=== PATIENT | female | born 1995 | race Caucasian/White ===

== ENCOUNTER → 2021-09-04 | Outpatient (CLI) | payer SELFPAY | END | disposition home or self-care (01) | PROVIDERS: Referring Provider Physician Assistant Surgical; Visit Provider Physician Assistant Surgical | DX: N39.0 Urinary tract infection, site not specified (principal) | CPT/HCPCS: 87086; 87088 ==

== ENCOUNTER 2022-12-24 01:27 | Emergency (ER) | payer OTHER, SELFPAY ==
[2022-12-24 01:27] VITALS: BP 136/72; PULSE 89; RESP 16; TEMP 36.5; TEMP 36.8; O2SAT 99; BMI 32.8
--- NOTE | 2022-12-24 02:10 | EDS_ITS ---
HPI History of Present Illness Chief Complaint: Dental Detail of Chief Complaint: Left lower molar dental pain Informant: patient Onset/Context/Timing Onset: Today and Hours Context: Gradual Onset Timing: Continuous Current Severity: Moderate Maximum Severity: Moderate Relieved by: NSAIDs Associated Symptoms Assocated Symptom - Dental: Negative for fever, jaw swelling, face swelling, cold sensitivity or hot sensitivity Narrative Narrative: [id number] female no significant past medical history. Has a fractured left lower molar with also a cavity. Started having dental pain several hours ago. No fever or chills. No facial swelling. Has been taking ibuprofen and Tylenol without significant relief. Prior similar symptoms: Yes Recent Illness/Hospitalization: No PFSH PFSH Medical History no medical history no medical history Home Medications penicillin V potassium 500 mg tablet 500 mg PO 4X/DAY #40 tabs 12/24/22 [Rx Last Taken Unknown] Allergy/AdvReac Type Severity Reaction Status Date / Time No Known Allergies Allergy Unverified 07/03/22 17:18 Surgical History no surgical history no surgical history Social History Smoking Status: Never smoker ROS ROS ED ROS Narrative Denies recent illness. Review of Systems ROS Unobtainable: Denies due to encephalopathy Constitutional Constitutional ED: Denies chills or fever(s) Eyes Eyes: Denies blurry vision ENT ENT ED: Denies ear pain Cardiovascular Cardiovascular: Denies chest pain Respiratory/Chest Respiratory/Chest: Denies cough or dyspnea Gastrointestinal Gastrointestinal: Denies abdominal pain Genitourinary Genitourinary ED: Denies dysuria or hematuria Musculoskeletal Musculoskeletal: Denies arthralgias Integumentary Denies abscess Neurologic Neurologic: Denies headache(s) Psychiatric Psychiatric: Denies anxiety Endocrine Endocrinology: Denies cold intolerance Hematologic/Lymphatic Hematologic/Lymphatic: Denies easy bleeding Allergic/Immunologic Allergic/Immunologic ED: Denies mouth swelling or tongue swelling EXAM Physical Exam Narrative Exam Narrative: 19-year-old female no acute distress. Vital signs stable afebrile. HEENT exam shows a left lower last molar has a large hornet system with a cavity in dental fracture. There is mild gingival swelling. No abscess. No trismus. Able to open and close her mouth any difficulty. Posterior pharynx normal. No trouble swallowing or breathing. Underneath her tongue is normal. There is no facial swelling. Neck nontender no lymphadenopathy. Lungs are clear. Heart regular rhythm. Otherwise exam unremarkable. Const Vital Signs: 12/24/22 01:27 12/24/22 01:27 Temperature 97.7 F L 98.2 F Temperature Source Temporal Temporal Pulse Rate 89 Respiratory Rate 16 Blood Pressure 136/72 H Blood Pressure Mean 93 Pulse Ox 99 99 Oxygen Delivery Method Room Air Room Air Positive well nourished and well developed; Negative for obese, cachectic, contractures or unkempt General Appearance ED: well developed and NAD; Negative for unkempt, cachectic or contractures Nutritional Appearance: Negative for cachectic or obese HEENT Denies other HEENT Narrative: Left lower last molar with a large hole in it. Mild gingival swelling. No abscess. No trismus. Negative for trauma, tenderness or other Face and Sinus: Negative for sinuses nontender Teeth and Gingiva: abnormal tooth and associated gingiva Throat: posterior oropharynx normal Eyes PERRL and EOMs intact bilaterally General Eye ED: Negative for pale conjunctiva or scleral icterus Neck no lymphadenopathy, supple and no JVD General: normal visual inspection; Negative for anterior neck swelling, tenderness or submandibular swelling Lymph Lymphatic: no lymphadenopathy noted; Negative for lymphadenopathy Chest Wall inspection of chest normal and palpation of chest normal Chest: Negative for other Resp normal respiratory effort, no retractions and clear to auscultation bilaterally Effort and Inspection: Negative for other Cardio regular rate, regular rhythm, S1 normal heart sound, S2 normal heart sound and no murmurs Jugular Venous Distention: Negative for other Rate: Negative for bradycardia Rhythm: Negative for abnormal rhythm GI normal to inspection, nondistended, normoactive bowel sounds, non-tender, non- distended and no masses Inspection: Negative for other Palpation: soft Bladder / Kidney Exam: No other Back/Spine no CVA tenderness General Back: Negative for CVA tenderness Cervical Spine: Negative for other Extremity normal to inspection and no joint enlargement General Extremety ED: Negative for edema General Extremity: Negative for edema Neuro oriented x3, moves all extremities and no focal motor deficits Sensorium / Orientation: alert, oriented to person, oriented to place and oriented to time Motor Exam: strength 5/5 throughout Psych mental status grossly normal Appearance: Negative for unkempt Attitude: No agitated Mood & Affect: Negative for depressed, anxious or tearful Skin no rashes or lesions noted and no wounds General Skin Exam: Negative for other MDM MDM MDM Narrative Medical decision making narrative: 27-year-old female no acute distress. Has a large hole in her left lower molar. I did a dental block using Marcaine. Patient is getting relief. She will be discharged home with Tylenol Motrin for pain. Follow-up with a dentist soon as possible. Manolo-Chantee K for the gingival inflammation around the tooth. History & Record Review Discussion w/independent historian: Patient Discharge Plan Triage Chief Complaint: Dental ED Provider: Miquel Ulloa Dx/Rx/DC Orders Clinical Impression: Pain, dental, Dental cavity Instructions: ED Dental Pain, ED Dental Cavity Prescriptions: New penicillin V potassium 500 mg tablet 500 mg PO 4X/DAY Qty: 40 0RF Activity Restrictions/Additional Instructions: Ice to your jaw. Alternate Motrin and Tylenol for pain. Follow-up with a dentist as soon as possible. Penicillin 1 pill 4 times a day till gone. Disposition Disposition: Home, Self Care
== END 2022-12-24 03:06 | disposition home or self-care (01) ==
LOC: ED 02:19
PROVIDERS: Emergency Provider Emergency Medicine; Visit Provider Emergency Medicine
DX: K08.89 Other specified disorders of teeth and supporting structures (principal); K02.9 Dental caries, unspecified
CPT/HCPCS: 99282

== ENCOUNTER 2023-04-28 20:54 | Emergency (ER) | payer OTHER, SELFPAY ==
[2023-04-28 20:55] VITALS: BP 117/93; PULSE 97; RESP 16; TEMP 35.9; O2SAT 97; BMI 32.8
--- NOTE | 2023-04-28 21:21 | CT_ITS ---
EXAM: CT ABDOMEN AND PELVIS WITHOUT INTRAVENOUS CONTRAST CLINICAL INDICATION: right flank pain TECHNIQUE: Helically acquired images were obtained of the abdomen and pelvis without intravenous contrast. This CT exam was performed using one or more of the following dose reduction techniques: automated exposure control, adjustment of the mA and/or kV according to patient size, and/or use of iterative reconstruction technique. COMPARISON: No relevant prior studies available. FINDINGS: LOWER THORAX: Unremarkable. Lung bases are clear. No cardiomegaly. No significant pericardial effusion. ABDOMEN: LIVER: Unremarkable. Homogeneous. GALLBLADDER AND BILE DUCTS: Unremarkable. No calcified gallstones. No gallbladder distention or wall edema. No intra- or extrahepatic biliary ductal dilation. PANCREAS: Unremarkable. No focal cystic mass. SPLEEN: Unremarkable. Normal size without focal cystic or solid mass. ADRENALS: Unremarkable. No nodules. KIDNEYS AND URETERS: Trace right hydronephrosis. Mild right hydroureter. 3 x 3 x 6 mm stone in the right distal ureter. Left kidney is unremarkable. Normal renal size and position. STOMACH AND BOWEL: Diverticulosis. No acute diverticulitis. No stomach or bowel distention. PELVIS: APPENDIX: No evidence of acute appendicitis. BLADDER: Unremarkable. REPRODUCTIVE: Unremarkable as visualized. No mass. ABDOMEN and PELVIS: INTRAPERITONEAL SPACE: Unremarkable. No ascites or other fluid collection. No free air. BONES/JOINTS: Unremarkable. No suspicious lytic or blastic abnormality. SOFT TISSUES: Unremarkable. No discrete abdominal or pelvic wall hernia. VASCULATURE: Unremarkable. Abdominal aorta is normal in caliber. LYMPH NODES: Unremarkable. No enlarged lymph nodes. CT/Abdomen/Pelvis without Cont IMPRESSION: Stone in the right distal ureter with mild proximal hydroureteronephrosis. Electronically Signed: Sabi Rosas MD at 23:08 EDT Reading Location ID and State: [id number] / Tel , Service support ,
--- NOTE | 2023-04-28 21:24 | EDS_ITS ---
HPI <MAX Salazar - Last Filed: 04/28/23 21:59> History of Present Illness Chief Complaint: Back Narrative Narrative: 28-year-old female states at 5 PM she adjusted herself in a chair and had sudden onset right flank pain and since then she has had the sensation that she has to urinate more frequently. She has no hematuria or burning. She has had a few episodes of nausea and vomiting since the pain started. No fever or chills. He has no history of similar symptoms or kidney stones. No abdominal surgical history. PFSH <AMX Salazar - Last Filed: 04/28/23 21:59> PFSH Medical History no medical history Home Medications ondansetron 4 mg disintegrating tablet 4 mg PO Q8H PRN nausea and vomiting 3 days #9 tabs 04/28/23 [Rx Last Taken Unknown] oxycodone 5 mg capsule 5 mg PO Q6H PRN pain 3 days #12 caps 04/28/23 [Rx Last Taken Unknown] tamsulosin 0.4 mg capsule (Flomax) 0.4 mg PO DAILY #5 caps 04/28/23 [Rx Last Taken Unknown] Allergy/AdvReac Type Severity Reaction Status Date / Time No Known Allergies Allergy Verified 04/28/23 20:55 Family History no significant family his Surgical History no surgical history Social History Smoking Status: Current every day smoker tobacco type: cigarettes ROS <MAX Salazar Last Filed: 04/28/23 21:59> ROS ED ROS Narrative Constitutional: Negative for fever, chills, malaise. CVS: Negative for chest pain, syncope. Respiratory: Negative for shortness of breath, cough. GI: Positive for nausea, vomiting. Negative for abdominal pain, diarrhea, constipation, melena, hematochezia. : Negative for dysuria, hematuria. EXAM <MAX Salazar Last Filed: 04/28/23 21:59> Physical Exam Narrative Exam Narrative: CONST: Patient sitting in no acute distress. EYES: Normal inspection. NECK: Normal inspection. RESP: No respiratory distress, CTAB. CVS: Regular rate and rhythm, no murmur, no gallop. ABD: Soft and nontender, no guarding or rebound, nondistended, no hepatosplenomegaly. Back: Normal inspection, no CVA tenderness. SKIN: Color normal, no rash, warm, dry, intact. EXTREMITIES: Normal appearance, no pedal edema. NEURO: Oriented x4. PSYCH: Normal affect. Const Vital Signs: 04/28/23 20:55 Temperature 96.7 F L Temperature Source Temporal Pulse Rate 97 Respiratory Rate 16 Blood Pressure 117/93 H Blood Pressure Mean 101 Pulse Ox 97 <Dr. Ajay Estrada DO - Last Filed: 04/28/23 23:33> Physical Exam Const Vital Signs: 04/28/23 20:55 Temperature 96.7 F L Temperature Source Temporal Pulse Rate 97 Respiratory Rate 16 Blood Pressure 117/93 H Blood Pressure Mean 101 Pulse Ox 97 MDM <MAX Salazar - Last Filed: 04/28/23 21:59> [facility] MDM Narrative Medical decision making narrative: Patient has right flank pain. He appears well and nontoxic with normal vital signs. Normal heart and lung sounds. No abdominal tenderness. There is no reproducible tenderness of her flank or back. Although this may be musculoskeletal as it started with readjusting herself in the chair, she also states the pain has been severe enough to cause vomiting and she feels the urge to urinate more frequently so labs and CT will be obtained to rule out kidney stone. Lab Data Attestation: I reviewed the patient's lab results. Labs: Laboratory Results - last 24 hr 04/28/23 04/28/23 04/28/23 21:35 21:35 21:40 WBC Cancelled Corrected WBC Cancelled RBC Cancelled Hgb Cancelled Hct Cancelled MCV Cancelled MCH Cancelled MCHC Cancelled RDW Std Deviation Cancelled RDW Coeff of Molly Cancelled Plt Count Cancelled MPV Cancelled Immature Gran % (Auto) Cancelled Neut % (Auto) Cancelled Lymph % (Auto) Cancelled [place] % (Auto) Cancelled Eos % (Auto) Cancelled Baso % (Auto) Cancelled Absolute Neuts (auto) Cancelled Absolute Lymphs (auto) Cancelled Total Counted Cancelled Neutrophils % (Manual) Cancelled Band Neutrophils % Cancelled Lymphocytes % (Manual) Cancelled Monocytes % (Manual) Cancelled Eosinophils % (Manual) Cancelled Basophils % (Manual) Cancelled Metamyelocytes % Cancelled Myelocytes % Cancelled Promyelocytes % Cancelled Blast Cells % Cancelled Plasma Cell % (Manual) Cancelled Other Cells % Cancelled Nucleated RBC % Cancelled Nucleated RBCs/100 WBC Cancelled Differential Comment Cancelled Diff Path Review Cancelled Hypersegmented Neuts Cancelled Atypical Lymphocytes Cancelled Reactive Lymphocytes Cancelled Smudge Cells Cancelled Toxic Granulation Cancelled Toxic Vacuolation Cancelled Dohle Bodies Cancelled Tiffanie Rods Cancelled Platelet Estimate Cancelled Plt Morphology Comment Cancelled RBC Morphology Cancelled Cancelled Polychromasia Cancelled Hypochromasia Cancelled Poikilocytosis Cancelled Basophilic Stippling Cancelled Anisocytosis Cancelled Microcytosis Cancelled Macrocytosis Cancelled Spherocytes Cancelled Sickle Cells Cancelled Target Cells Cancelled Tear Drop Cells Cancelled Ovalocytes Cancelled Stomatocytes Cancelled [place] Bodies Cancelled [place] Cells Cancelled Bite Cells Cancelled Crenated Cell Cancelled Acanthocytes (Spur) Cancelled Rouleaux Cancelled Schistocytes Cancelled Sodium 138 Potassium 3.9 Chloride 106 Carbon Dioxide 25.0 Anion Gap 7 BUN 15 Creatinine 1.13 H Estim Creat Clear Calc 63.43 Est GFR (MDRD) Af Amer 73 Est GFR (MDRD) Non-Af 61 BUN/Creatinine Ratio 13.3 Glucose 113 H Calcium 9.3 Urine Color Yellow Urine Clarity Cloudy Urine pH 8.0 Ur Specific [place] 1.010 Urine Protein 30 H Urine Glucose (UA) Normal Urine Ketones 150 A* Urine Occult Blood 25 H Urine Nitrite Negative Urine Bilirubin Negative Urine Urobilinogen 1 H Ur Leukocyte Esterase 25 H Urine RBC 0-5 SEEN Urine WBC 0-5 SEEN Ur Squamous Epith Cells 0-5 SEEN Amorphous Sediment 1+ Urine Bacteria 2+ Urine Mucus RARE Urine Test Negative Radiography Diagnostic Testing: Clinical Impression(s) from Imaging Studies Abdomen/Pelvis CT 04/28/23 21:21 IMPRESSION: Stone in the right distal ureter with mild proximal hydroureteronephrosis. Electronically Signed: Sabi Rosas MD at 23:08 EDT Reading Location ID and State: [id number] / Tel , Service support , <Dr. Ajay Estrada, DO - Last Filed: 04/28/23 23:33> [facility] Lab Data Labs: Laboratory Results - last 24 hr 04/28/23 04/28/23 04/28/23 21:35 21:35 21:40 WBC Cancelled Corrected WBC Cancelled RBC Cancelled Hgb Cancelled Hct Cancelled MCV Cancelled MCH Cancelled MCHC Cancelled RDW Std Deviation Cancelled RDW Coeff of Molly Cancelled Plt Count Cancelled MPV Cancelled Immature Gran % (Auto) Cancelled Neut % (Auto) Cancelled Lymph % (Auto) Cancelled [place] % (Auto) Cancelled Eos % (Auto) Cancelled Baso % (Auto) Cancelled Absolute Neuts (auto) Cancelled Absolute Lymphs (auto) Cancelled Total Counted Cancelled Neutrophils % (Manual) Cancelled Band Neutrophils % Cancelled Lymphocytes % (Manual) Cancelled Monocytes % (Manual) Cancelled Eosinophils % (Manual) Cancelled Basophils % (Manual) Cancelled Metamyelocytes % Cancelled Myelocytes % Cancelled Promyelocytes % Cancelled Blast Cells % Cancelled Plasma Cell % (Manual) Cancelled Other Cells % Cancelled Nucleated RBC % Cancelled Nucleated RBCs/100 WBC Cancelled Differential Comment Cancelled Diff Path Review Cancelled Hypersegmented Neuts Cancelled Atypical Lymphocytes Cancelled Reactive Lymphocytes Cancelled Smudge Cells Cancelled Toxic Granulation Cancelled Toxic Vacuolation Cancelled Dohle Bodies Cancelled Tiffanie Rods Cancelled Platelet Estimate Cancelled Plt Morphology Comment Cancelled RBC Morphology Cancelled Cancelled Polychromasia Cancelled Hypochromasia Cancelled Poikilocytosis Cancelled Basophilic Stippling Cancelled Anisocytosis Cancelled Microcytosis Cancelled Macrocytosis Cancelled Spherocytes Cancelled Sickle Cells Cancelled Target Cells Cancelled Tear Drop Cells Cancelled Ovalocytes Cancelled Stomatocytes Cancelled [place] Bodies Cancelled [place] Cells Cancelled Bite Cells Cancelled Crenated Cell Cancelled Acanthocytes (Spur) Cancelled Rouleaux Cancelled Schistocytes Cancelled Sodium 138 Potassium 3.9 Chloride 106 Carbon Dioxide 25.0 Anion Gap 7 BUN 15 Creatinine 1.13 H Estim Creat Clear Calc 63.43 Est GFR (MDRD) Af Amer 73 Est GFR (MDRD) Non-Af 61 BUN/Creatinine Ratio 13.3 Glucose 113 H Calcium 9.3 Urine Color Yellow Urine Clarity Cloudy Urine pH 8.0 Ur Specific [place] 1.010 Urine Protein 30 H Urine Glucose (UA) Normal Urine Ketones 150 A* Urine Occult Blood 25 H Urine Nitrite Negative Urine Bilirubin Negative Urine Urobilinogen 1 H Ur Leukocyte Esterase 25 H Urine RBC 0-5 SEEN Urine WBC 0-5 SEEN Ur Squamous Epith Cells 0-5 SEEN Amorphous Sediment 1+ Urine Bacteria 2+ Urine Mucus RARE Urine Test Negative BMP without evidence of significant electrolyte abnormalities, no anion gap, no acute kidney injury. Urinalysis shows no evidence of urinary inflammation suggestive of UTI Urine test is negative Radiography Diagnostic Testing: Clinical Impression(s) from Imaging Studies Abdomen/Pelvis CT 04/28/23 21:21 IMPRESSION: Stone in the right distal ureter with mild proximal hydroureteronephrosis. Electronically Signed: Sabi Rosas MD at 23:08 EDT Reading Location ID and State: [id number] / Tel , Service support , Treatment and Re-Evaluation :: ED attending note: I evaluated the patient in conjunction with the MARCY. I agree with his/her statements and above findings. I have personally performed a face to face assessment of the patient and have reviewed the MARCY Note. I performed a substantive portion of the visit including all aspects of the following. I personally saw the patient performed chart review, physical exam, reviewed labs, imaging (if obtained), and formulated a treatment and management plan. Brief history: 28-year-old female here with acute onset of right sided back/flank pain. Patient denies any saddle anesthesia, urinary retension, bowel or bladder incontinence, lower extremity weakness, fever or IV drug use, no recent spinal manipulation or surgery, no recent urinary catheterization. Exam: Nursing triage notes reviewed, Vital signs reviewed Constitutional: please see mdm HENT: MMM Eyes: Pupils equal round and reactive to light, Extraocular muscles intact Neck: No stridor, no JVD, full neck ROM Lungs: Clear to auscultation, No wheezing or rales. No increased work of breathing, no conversational dyspnea, no accessory muscle use, no nasal flaring. No respiratory distress noted Heart: Regular rate and rhythm, No murmurs, No rubs and No gallops, 2+ distal pulses (radial, femoral, posterior tibial) in all extremities Abdomen: Soft, there is no tenderness, rigidity, rebound or guarding, no obvious peritoneal signs, no palpable pulsatile abdominal masses, no auscultated abdominal bruit : No CVAT Extremities: No edema Neuro: Intact sensation L1-S1 dermatomal distributions. Intact 5/5 strength in hip flexion (T12-L3). Knee extension (L2-L4). Ankle dorsiflexion (L4-L5). Ankle plantar flexion (S1). Great toe extension (L5). 2+ patellar and Achilles DTRs. Skin: No rash or lesions noted MDM/plan: Chief Complaint: Back pain/flank pain External records reviewed: No recent advanced imaging the abdomen or pelvis Factors affecting care: None MDM narrative: The patient was hemodynamically stable, afebrile, nontoxic-appearing. No obvious CVA tenderness. No obvious focal lower extremity neurologic deficits I considered the following differential diagnosis: Epidural abscess, kidney stone, pyelonephritis, , nephrolithiasis CT scan showed evidence of nephrolithiasis. Urine was not infected. Gave Zofra n, narcotics and Flomax for home-going. Gave strict return precautions and follow-up instructions Shared decision making: I will have a discussion with the patient and or visitors regarding risk/ benefits of further testing or admission. They will be made aware of of the risk/benefits inherent in this decision they will be given the opportunity to voice understanding. Consults: None Impression: Nephrolithiasis, hydronephrosis Plan: Discharge Discharge Plan Triage Chief Complaint: Back ED Midlevel Provider: Janie Mejias ED Provider: Ajay Estrada Dx/Rx/DC Orders Clinical Impression: Acute right flank pain Instructions: ED Kidney Stone w/ Colic Prescriptions: New ondansetron 4 mg tablet,disintegrating 4 mg PO Q8H PRN (Reason: nausea and vomiting) 3 Days Qty: 9 0RF oxycodone 5 mg capsule 5 mg PO Q6H PRN (Reason: pain) 3 Days Qty: 12 0RF tamsulosin [Flomax] 0.4 mg capsule 0.4 mg PO DAILY Qty: 5 0RF Primary Care Provider: Care Physician,No Primary Referrals: Giovanni Conrad MD [Med Staff - Mult Au Matic Operator] - Activity Restrictions/Additional Instructions: Thank you for trusting us with your care today! Please take Tylenol (2 pills, 650 mg), ibuprofen (2 pills, 400 mg) every 6 hours as needed for pain and fever control. Please take oxycodone if the above regimen does not control your pain. Please take Zofran as needed for nausea. Please return to the emergency department if your symptoms change or worsen. Please follow with your primary care physician for further outpatient evaluation and management. Disposition Disposition: Home, Self Care
[2023-04-28 22:00] LABS: Internal QC Validated? YES +Cl - CLEAR BKGD
[2023-04-28 22:01] LABS: Color, Urine Yellow (Yellow); Glucose, Dipstick Normal (Normal); Leukocyte Esterase-Dipstick 25 /ul (Negative); Nitrite-Dipstick Negative (Negative); Occult Blood-Urine 25 /ul (Negative); Protein-Dipstick 30 mg/dl (Negative); Urine Bilirubin Dipstick Negative (Negative); Urine Clarity Cloudy (Clear); Urine Urobilinogen 1 mg/dl (Normal)
[2023-04-28 22:04] LABS: Ketone-Dipstick 150 mg/dl (Negative); Pregnancy, Urine Negative Negative
[2023-04-28 22:06] LABS: Anion Gap 7 (5-15); BUN 15 mg/dL (7-18); BUN/Creat Ratio 13.3 RATIO (10-20); Calcium,Total 9.3 mg/dL (8.5-10.1); Chloride 106 mmol/L (98-107); Creatinine, Serum 1.13 mg/dL (0.55-1.02); EST Glomerular Filtration Rate 61 mL/min (>60); Est Glom Filt Rate - Afr Amer 73 mL/min (>60); Estimated Creatinine Clearance 63.43 ml/min; Glucose 113 mg/dL (74-106); Potassium 3.9 mmol/L (3.5-5.1); Sodium Level 138 mmol/L (136-145)
[2023-04-28 22:07] LABS: Amorphous Sediment 1+; Bacteria 2+ /hpf (None Seen); Mucous, Urine RARE /hpf (<or=2+); Red Blood Cells-Urine 0-5 SEEN /hpf (0-5); Squamous Epithelial Cells - UA 0-5 SEEN /hpf (5-10); White Blood Cells 0-5 SEEN /hpf (0-5)
[2023-04-28] MEDS: Ondansetron ODT 4 MG Tablet PO (22:25)
[2023-04-28 23:41] VITALS: RESP 16
== END 2023-04-28 23:55 | disposition home or self-care (01) ==
PROVIDERS: Physician Assistant; Emergency Provider Emergency Medicine; Visit Provider Emergency Medicine
DX: N13.2 Hydronephrosis with renal and ureteral calculous obstruction (principal); F17.210 Nicotine dependence, cigarettes, uncomplicated; Z79.899 Other long term (current) drug therapy
CPT/HCPCS: 74176; 80048; 81001; 81025; 99283; A4216; J2405

== ENCOUNTER 2023-07-11 05:55 | Day surgery (SDC) | payer SELFPAY ==
[2023-07-11] VITALS (7 sets, daily range): BP systolic 94–117; BP diastolic 66–97; PULSE 71–88; RESP 14–16; TEMP 36–36.7; O2SAT 96–100; BMI 32.7
--- NOTE | 2023-07-11 06:06 | EX.ED.DYSGE1 ---
HPI <Dr. Eduar Mercado DO - Last Filed: 07/11/23 06:54> History of Present Illness Chief Complaint: Flank Pain Informant: patient Onset/Context/Timing Onset: Today Context: Sudden Onset Timing: Continuous Quality: Sharp Location: Right flank Worsened by: Nothing Relieved by: Nothing Narrative Narrative: Patient presents with right flank pain that began today. Patient states it woke her up out of her sleep today. Patient describes it as sharp. Patient states nothing makes it worse and nothing makes it better. Patient states she is currently on Macrobid for a urinary tract infection. Patient still has some dysuria and hematuria. Patient had an episode of nausea and vomiting earlier today. Patient states she has a history of prior kidney stone approximately 2 months ago. PFSH <Dr. Eduar Mercado DO - Last Filed: 07/11/23 06:54> PFSH Medical History History of kidney stones Medical History no medical history Home Medications nitrofurantoin monohydrate/macrocrystals 100 mg capsule (Macrobid) 100 mg PO Q12H 07/11/23 [History Last Taken Unknown] Allergy/AdvReac Type Severity Reaction Status Date / Time No Known Allergies Allergy Verified 07/11/23 06:00 Surgical History no surgical history no surgical history Social History Smoking Status: Current every day smoker tobacco type: cigarettes ROS <Dr. Eduar Mercado DO - Last Filed: 07/11/23 06:54> ROS ED Constitutional Constitutional ED: Denies chills or fever(s) Eyes Eyes: Denies blurry vision or change in vision ENT ENT ED: Denies rhinorrhea or sore throat Cardiovascular Cardiovascular: Denies chest pain or palpitations Respiratory/Chest Respiratory/Chest: Denies cough or dyspnea Gastrointestinal Gastrointestinal: Reports abdominal pain, nausea and vomiting Genitourinary Genitourinary ED: Reports dysuria and hematuria Musculoskeletal Musculoskeletal: Reports back pain; Denies neck pain Integumentary Denies abscess or rash Neurologic Neurologic: Denies headache(s) or weakness Allergic/Immunologic Allergic/Immunologic ED: Denies mouth swelling or urticaria EXAM <Dr. Eduar Mercado DO - Last Filed: 07/11/23 06:54> Physical Exam Const Vital Signs: 07/11/23 05:56 07/11/23 08:33 Temperature 97.5 F L Temperature Source Oral Pulse Rate 88 88 Respiratory Rate 15 14 Blood Pressure 117/74 104/69 Blood Pressure Mean 88 80 Pulse Ox 96 98 Oxygen Delivery Method Room Air Room Air Positive well nourished, well developed and obese General Appearance ED: well developed and NAD Nutritional Appearance: obese HEENT Reports moist mucous membranes Neck supple and no JVD Resp normal respiratory effort and clear to auscultation bilaterally Cardio regular rate and regular rhythm GI non-tender and non-distended Palpation: soft Back/Spine no CVA tenderness Neuro oriented x3, CN's II-XII intact bilaterally and no sensory deficits noted Sensorium / Orientation: alert Motor Exam: strength 5/5 throughout Psych mental status grossly normal <Dr. Jaydon Caldwell MD - Last Filed: 07/11/23 09:07> Physical Exam Const Vital Signs: 07/11/23 05:56 07/11/23 08:33 Temperature 97.5 F L Temperature Source Oral Pulse Rate 88 88 Respiratory Rate 15 14 Blood Pressure 117/74 104/69 Blood Pressure Mean 88 80 Pulse Ox 96 98 Oxygen Delivery Method Room Air Room Air MDM <Dr. Eduar Mercado DO - Last Filed: 07/11/23 06:54> MDM MDM Narrative Medical decision making narrative: Differential diagnosis includes pyelonephritis, ureteral calculus, ovarian cyst, ectopic , colitis, and gastroenteritis. CBC will be obtained to assess for leukocytosis and anemia. Basic metabolic profile will be obtained to assess for electrolyte abnormality and renal function. Urinalysis will be obtained to assess for urinary tract infection and hematuria. CT scan of the abdomen pelvis will be obtained to assess for ureteral calculus. hCG will be obtained to assess for . Lab Data Attestation: I reviewed the patient's lab results. Lab results narrative: CBC was reviewed and was within normal limits. Basic metabolic profile was reviewed. Creatinine was slightly elevated at 1.42. This is slightly increased from previous result of 1.13. The remainder is within normal limits. Labs: Laboratory Results - last 24 hr 07/11/23 07/11/23 06:30 06:50 WBC 9.6 RBC 4.43 Hgb 14.6 Hct 43.9 MCV 99.1 H MCH 33.0 H MCHC 33.3 RDW Std Deviation 46.9 H RDW Coeff of Molly 12.9 Plt Count 269 MPV 9.7 Immature Gran % (Auto) 0.300 Neut % (Auto) 67.8 Lymph % (Auto) 18.6 L [place] % (Auto) 11.8 H Eos % (Auto) 1.0 Baso % (Auto) 0.5 Absolute Neuts (auto) 6.5 Absolute Lymphs (auto) 1.78 Nucleated RBC % 0 Sodium 139 Potassium 3.6 Chloride 110 H Carbon Dioxide 26.0 Anion Gap 3 L BUN 17 Creatinine 1.42 H Estim Creat Clear Calc 50.48 Est GFR (MDRD) Af Amer 56 L Est GFR (MDRD) Non-Af 46 L BUN/Creatinine Ratio 12.0 Glucose 99 Calcium 8.6 Serum , Qual NEGATIVE Urine Color Brown Urine Clarity Sl. Cloudy Urine pH 5.0 Ur Specific [place] 1.030 Urine Protein 100 H Urine Glucose (UA) Normal Urine Ketones Negative Urine Occult Blood 10 H Urine Nitrite Positive H Urine Bilirubin 6 H Urine Urobilinogen 8 H Ur Leukocyte Esterase Negative Urine RBC 0-5 SEEN Urine WBC 0-5 SEEN Ur Squamous Epith Cells 5-10 SEEN Amorphous Sediment 3+ Urine Bacteria 3+ Urine Mucus 0 SEEN Urine Test Negative Radiography Diagnostic Testing: Clinical Impression(s) from Imaging Studies Abdomen/Pelvis CT 07/11/23 06:13 IMPRESSION: There is a 6 x 3 mm stone in the right UVJ causing mild obstructive changes. This could still be the same stone from the 04/28/2023 exam. Electronically Signed: Stew Murcia MD at 7:38 EDT , Treatment and Re-Evaluation :: Patient was given IV fluids, morphine, and Zofran. Care of the patient was turned over to oncoming physician pending CT scan results urinalysis results, and results. <Dr. Jaydon Caldwell MD - Last Filed: 07/11/23 09:07> [facility] Lab Data Lab results narrative: CBC was reviewed and was within normal limits. Basic metabolic profile was reviewed. Creatinine was slightly elevated at 1.42. This is slightly increased from previous result of 1.13. The remainder is within normal limits. This consistent with infection. She has positive nitrites, 3+ bacteria. Labs: Laboratory Results - last 24 hr 07/11/23 07/11/23 06:30 06:50 WBC 9.6 RBC 4.43 Hgb 14.6 Hct 43.9 MCV 99.1 H MCH 33.0 H MCHC 33.3 RDW Std Deviation 46.9 H RDW Coeff of [place] 12.9 Plt Count 269 MPV 9.7 Immature Gran % (Auto) 0.300 Neut % (Auto) 67.8 Lymph % (Auto) 18.6 L [place] % (Auto) 11.8 H Eos % (Auto) 1.0 Baso % (Auto) 0.5 Absolute Neuts (auto) 6.5 Absolute Lymphs (auto) 1.78 Nucleated RBC % 0 Sodium 139 Potassium 3.6 Chloride 110 H Carbon Dioxide 26.0 Anion Gap 3 L BUN 17 Creatinine 1.42 H Estim Creat Clear Calc 50.48 Est GFR (MDRD) Af Amer 56 L Est GFR (MDRD) Non-Af 46 L BUN/Creatinine Ratio 12.0 Glucose 99 Calcium 8.6 Serum , Qual NEGATIVE Urine Color Brown Urine Clarity Sl. Cloudy Urine pH 5.0 Ur Specific [place] 1.030 Urine Protein 100 H Urine Glucose (UA) Normal Urine Ketones Negative Urine Occult Blood 10 H Urine Nitrite Positive H Urine Bilirubin 6 H Urine Urobilinogen 8 H Ur Leukocyte Esterase Negative Urine RBC 0-5 SEEN Urine WBC 0-5 SEEN Ur Squamous Epith Cells 5-10 SEEN Amorphous Sediment 3+ Urine Bacteria 3+ Urine Mucus 0 SEEN Urine Test Negative Radiography Diagnostic Testing: Clinical Impression(s) from Imaging Studies Abdomen/Pelvis CT 07/11/23 06:13 IMPRESSION: There is a 6 x 3 mm stone in the right UVJ causing mild obstructive changes. This could still be the same stone from the 04/28/2023 exam. 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 Care of the patient was turned over to oncoming physician pending CT scan results urinalysis results, and results. Pain is improved markedly. Since she has an obstructing stone with infection she was given a dose of Rocephin. Urine culture was obtained. Spoke to Dr. Joshua. Plan is OR since patient not had anything to eat or drink since last night at 7 PM. Discharge Plan Dx/Rx/DC Orders Clinical Impression: Complicated UTI (urinary tract infection), Hydronephrosis with urinary obstruction due to ureteral calculus Disposition Disposition: Acute Care Hospital [facility] Discharge Date/Time: 07/11/23 08:57
--- NOTE | 2023-07-11 06:13 | CT_ITS ---
EXAM: CT ABDOMEN AND PELVIS WITHOUT INTRAVENOUS CONTRAST CLINICAL INDICATION: Right flank pain TECHNIQUE: Helically acquired images were obtained of the abdomen and pelvis without intravenous contrast. This CT exam was performed using one or more of the following dose reduction techniques: automated exposure control, adjustment of the mA and/or kV according to patient size, and/or use of iterative reconstruction technique. RADIATION DOSE: CTDIvol = 14.45 mGy, DLP = 735.42 mGy-cm COMPARISON: CT abdomen and pelvis 04/28/2023 FINDINGS: LOWER THORAX: Unremarkable. Lung bases are clear. No cardiomegaly. No significant pericardial effusion. ABDOMEN: LIVER: Unremarkable. Homogeneous. GALLBLADDER AND BILE DUCTS: Unremarkable. No calcified gallstones. No gallbladder distention or wall edema. No intra- or extrahepatic biliary ductal dilation. PANCREAS: Unremarkable. No focal cystic mass. SPLEEN: Unremarkable. Normal size without focal cystic or solid mass. ADRENALS: Unremarkable. No nodules. KIDNEYS AND URETERS: There is a 6 x 3 mm stone in the right UVJ causing mild obstructive changes. Normal renal size and position. No other stones identified within the kidneys or ureters. STOMACH AND BOWEL: Diverticular disease of the colon but no diverticulitis. No stomach or bowel distention. PELVIS: APPENDIX: The appendix is normal. BLADDER: Unremarkable. REPRODUCTIVE: Unremarkable as visualized. No mass. ABDOMEN and PELVIS: INTRAPERITONEAL SPACE: Unremarkable. No ascites or other fluid collection. No free air. BONES/JOINTS: Unremarkable. No suspicious lytic or blastic abnormality. SOFT TISSUES: Unremarkable. No discrete abdominal or pelvic wall hernia. VASCULATURE: Unremarkable. Abdominal aorta is non-dilated. LYMPH NODES: Unremarkable. No enlarged lymph nodes. CT/Abdomen/Pelvis without Cont IMPRESSION: There is a 6 x 3 mm stone in the right UVJ causing mild obstructive changes. This could still be the same stone from the 04/28/2023 exam. Electronically Signed: Stew Murcia MD at 7:38 EDT ,
[2023-07-11 06:37] LABS: Absolute Lymphocyte Count 1.78 X10^3/uL (0.83-4.51); Absolute Neutrophil Count 6.5 X10^3/uL (2.0-7.7); Basophil# 0.05 X10^3/uL; Basophil% 0.5 % (0-1); Hematocrit 43.9 % (37-47); Hemoglobin 14.6 g/dL (12.0-15.0); Lymphocyte # 1.78 X10^3/ul (0.83-4.51); Lymphocyte % 18.6 % (19-41); Mean Corp Hgb Conc 33.3 g/dL (32-36); Mean Corpuscular Volume 99.1 fL (81-99); Mean Platelet Vol. 9.7 fl (6.2-12.0); Monocyte# 1.13 X10^3/uL; Monocyte% 11.8 % (0-10); NRBC Flagged by Analyzer 0 % (0-5); Neutrophil % 67.8 % (47-70); Platelet Count 269 K/mm3 (150-450); RBC Distribution Width CV 12.9 % (11.6-14.6); RBC Distribution Width SD 46.9 fl (35.1-43.9); Red Blood Count 4.43 M/mm3 (4.2-5.4); White Blood Count 9.6 K/mm3 (4.4-11.0)
[2023-07-11 06:49] LABS: Anion Gap 3 (5-15); BUN 17 mg/dL (7-18); Calcium,Total 8.6 mg/dL (8.5-10.1); Chloride 110 mmol/L (98-107); Creatinine, Serum 1.42 mg/dL (0.55-1.02); EST Glomerular Filtration Rate 46 mL/min (>60); Est Glom Filt Rate - Afr Amer 56 mL/min (>60); Estimated Creatinine Clearance 50.48 ml/min; Glucose 99 mg/dL (74-106); Potassium 3.6 mmol/L (3.5-5.1); Sodium Level 139 mmol/L (136-145)
[2023-07-11 06:56] LABS: Mucous, Urine 0 SEEN /hpf (<or=2+)
[2023-07-11 07:00] LABS: Color, Urine Brown (Yellow); Glucose, Dipstick Normal (Normal); Ketone-Dipstick Negative (Negative); Leukocyte Esterase-Dipstick Negative /ul (Negative); Nitrite-Dipstick Positive (Negative); Occult Blood-Urine 10 /ul (Negative); Protein-Dipstick 100 mg/dl (Negative); Urine Clarity Sl. Cloudy (Clear); Urine Urobilinogen 8 mg/dl (Normal)
[2023-07-11] MEDS: Morphine 4 MG/ML Syringe IV (07:03)
[2023-07-11] MEDS: Ondansetron 4 MG/2 ML Vial IV (07:03)
[2023-07-11] MEDS: 0.9% Normal Saline (1000mL) 1,000 ML 1000 ML IV (07:04)
[2023-07-11 07:12] LABS: Internal QC Validated? YES +Cl - CLEAR BKGD; Pregnancy, Serum, hCG Quali. NEGATIVE Negative; Record Kit Lot#, Serum Preg. HCG0000667200
[2023-07-11 07:17] LABS: Amorphous Sediment 3+; Bacteria 3+ /hpf (None Seen); Red Blood Cells-Urine 0-5 SEEN /hpf (0-5); Squamous Epithelial Cells - UA 5-10 SEEN /hpf (5-10); Urine Bilirubin Dipstick 6 mg/dL (Negative); White Blood Cells 0-5 SEEN /hpf (0-5)
[2023-07-11] MEDS: Ceftriaxone 1 GM/50 ML BAG IV (08:34)
[2023-07-11 08:45] LABS: Internal QC Validated? YES +Cl - CLEAR BKGD
[2023-07-11 08:46] LABS: Record Kit Lot#,Urine Preg HCG0000667200
[2023-07-11 08:53] LABS: Pregnancy, Urine Negative Negative
[2023-07-11] MEDS: Lactated Ringers 1,000 ML 15 ML IV (09:05)
--- NOTE | 2023-07-11 11:14 | PCM.HP.STD ---
[facility] General Date of Service: 07/11/23 Chief Complaint: Right back pain, nausea vomiting [facility] Narrative LUIS MIGUEL CISNEROS, is a 28 F who presented to the emergency room today with uncontrolled flank and abdominal pain with nausea and vomiting. She had started Macrobid last night for diagnosis of urinary tract infection with complaints of urgency, frequency and dysuria. The pain became intolerable early this morning and she presented to the emergency room. On evaluation she was found to have a distal right-sided ureteral calculus with hydronephrosis and elevated creatinine. She has had a history of stones previously but has never needed surgical intervention. [facility] Medical History History of kidney stones Medical History no medical history Home Medications nitrofurantoin monohydrate/macrocrystals 100 mg capsule (Macrobid) 100 mg PO Q12H 07/11/23 [History Last Taken Unknown] Allergy/AdvReac Type Severity Reaction Status Date / Time No Known Allergies Allergy Verified 07/11/23 06:00 Surgical History no surgical history Social History Smoking Status: Current every day smoker tobacco type: cigarettes ROS Constitutional Constitutional: Denies chills, fever(s) or weakness Eyes Eyes: Reports systems reviewed and no addt'l complaints, except as documented ENT HEENT: Reports systems reviewed and no addt'l complaints, except as documented Cardiovascular Cardiovascular: Reports abdominal pain, nausea and vomiting; Denies chest pain, dizziness or dyspnea Respiratory/Chest Respiratory/Chest: Reports systems reviewed and no addt'l complaints, except as documented Gastrointestinal Gastrointestinal: Reports abdominal pain, nausea and vomiting Genitourinary Genitourinary: Reports abdominal discomfort, burning urination, flank pain, low back pain, polyuria, urinary frequency and urinary urgency Musculoskeletal Musculoskeletal: Reports systems reviewed and no addt'l complaints, except as documented Integumentary Integumentary: Reports systems reviewed and no addt'l complaints, except as documented Neurologic Neurologic: Reports systems reviewed and no addt'l complaints, except as documented Psychiatric Psychiatric: Reports systems reviewed and no addt'l complaints, except as documented Endocrine Endocrinology: Reports systems reviewed and no addt'l complaints, except as documented Hematologic/Lymphatic Hematologic/Lymphatic: Reports systems reviewed and no addt'l complaints, except as documented Allergic/Immunologic Allergic/Immunologic: Reports systems reviewed and no addt'l complaints, except as documented Vital Signs Vital Signs Vital Signs: 07/11/23 05:56 07/11/23 08:33 Temperature 97.5 F L Temperature Source Oral Pulse Rate 88 88 Respiratory Rate 15 14 Blood Pressure 117/74 104/69 Blood Pressure Mean 88 80 Pulse Ox 96 98 Oxygen Delivery Method Room Air Room Air Weight Weight: 86.5 kg Body Mass Index (BMI) 32.7 Physical Exam Const alert, oriented x3, healthy appearing and well nourished General Appearance: cooperative, well kempt and well developed HEENT normocephalic and head/scalp atraumatic Eyes General Eye: normal appearance of both eyes Neck supple General: normal visual inspection and trachea midline Lymph Lymphatic: no lymphedema noted Chest inspection of chest normal Resp normal respiratory effort, normal air movement, no retractions and no use of accessory muscles Cardio regular rate and regular rhythm GI soft to palpation, non-tender and non-distended Bladder / Kidney Exam: CVA tenderness right Back/Spine General Back: CVA tenderness right Extremity normal to inspection Skin no rashes or lesions noted, no wounds, skin turgor normal, no jaundice, no petechiae and no mottling Neuro oriented x3, CN's II-XII intact bilaterally and moves all extremities Psych mental status grossly normal and thought process normal Results Lab / Micro Data 07/11/23 06:30 07/11/23 06:30 Labs: Laboratory Results - last 24 hr 07/11/23 06:30: WBC 9.6, RBC 4.43, Hgb 14.6, Hct 43.9, MCV 99.1 H, MCH 33.0 H, MCHC 33.3, RDW Std Deviation 46.9 H, RDW Coeff of [place] 12.9, Plt Count 269, MPV 9.7, Immature Gran % (Auto) 0.300, Neut % (Auto) 67.8, Lymph % (Auto) 18.6 L, [place] % (Auto) 11.8 H, Eos % (Auto) 1.0, Baso % (Auto) 0.5, Absolute Neuts (auto) 6.5, Absolute Lymphs (auto) 1.78, Nucleated RBC % 0, Sodium 139, Potassium 3.6, Chloride 110 H, Carbon Dioxide 26.0, Anion Gap 3 L, BUN 17, Creatinine 1.42 H, Estim Creat Clear Calc 50.48, Est GFR (MDRD) Af Amer 56 L, Est GFR (MDRD) Non-Af 46 L, BUN/Creatinine Ratio 12.0, Glucose 99, Calcium 8.6, Serum , Qual NEGATIVE 07/11/23 06:50: Urine Color Brown, Urine Clarity Sl. Cloudy, Urine pH 5.0, Ur Specific [place] 1.030, Urine Protein 100 H, Urine Glucose (UA) Normal, Urine Ketones Negative, Urine Occult Blood 10 H, Urine Nitrite Positive H, Urine Bilirubin 6 H, Urine Urobilinogen 8 H, Ur Leukocyte Esterase Negative, Urine RBC 0-5 SEEN, Urine WBC 0-5 SEEN, Ur Squamous Epith Cells 5-10 SEEN, Amorphous Sediment 3+, Urine Bacteria 3+, Urine Mucus 0 SEEN, Urine Test Negative Radiology Impression Abdomen/Pelvis CT 07/11/23 06:13 IMPRESSION: There is a 6 x 3 mm stone in the right UVJ causing mild obstructive changes. This could still be the same stone from the 04/28/2023 exam. Electronically Signed: Stew Murcia MD at 7:38 EDT , Assessment & Plan Assessment/Plan (1) Hydronephrosis with urinary obstruction due to ureteral calculus: (2) Complicated UTI (urinary tract infection): PLAN: Plan She has a negative test She has received intravenous antibiotic administration and a urine culture is pending After discussing risks and options she has agreed to proceed with cystoscopy with right ureteral stent insertion for drainage of her obstructed right kidney. The risks of surgical intervention were discussed, informed consent was obtained. She will be sent home with antibiotics and pain management and we will address the stone at a later date.
--- NOTE | 2023-07-11 12:38 | DCINST_ITS ---
Discharge Instructions Diet Discharge Diet: No restrictions Activity Discharge Activity: Return to Normal Activity Dressing / Incision Call your doctor if you observe: Fever of 101 or Higher, Inability to urinate and Inability to have a bowel movement Follow Up Care Please Follow Up With: Sue Joshua MD When: The office will call the patient to make follow-up arrangements Test Results: Test results from this visit will be discussed in further detail at your follow- up appointment, if applicable. Discharge Plan Admission Attending Provider: Sue Joshua Primary Care Provider: Care PhysicianShae Primary Discharge Orders/Prescriptions Prescriptions: New oxycodone-acetaminophen [Percocet] 5-325 mg tablet 1 tab PO Q8H PRN (Reason: pain) 4 Days Qty: 12 0RF cephalexin [cephalexin] 500 mg capsule 500 mg PO 3XD 7 Days Qty: 21 0RF phenazopyridine [Pyridium] 200 mg tablet 200 mg PO TID PRN PRN (Reason: Bladder Spasms) 7 Days Qty: 30 0RF Discontinued nitrofurantoin monohyd/m-cryst [Macrobid] 100 mg capsule 100 mg PO Q12H Referrals / Follow Up: Care Physician,Shae Primary [Primary Care Provider] - Disposition Disposition (needs filled in before D/C Order can be placed): Home, Self Care
--- NOTE | 2023-07-11 12:39 | OP.PCM_ITS ---
Problems Associated Problem List Diagnoses (1) Hydronephrosis with urinary obstruction due to ureteral calculus: Report of Operation Date of Procedure: 07/11/23 Pre-Operative Diagnosis: Right distal ureteral calculus with hydronephrosis, urinary tract infection Post-Operative Diagnosis: Same Surgery/Procedure Performed:: Cystoscopy, right ureteral stent insertion Surgeon: Sue Joshua Type of Anesthesia: MAC Specimen's removed: None Description of Procedure: The patient is a 28-year-old female who presented to the emergency room with pain in her right flank, nausea, vomiting and urinary tract infection. A CT scan revealed a distal obstructing right ureteral calculus. She is here now for placement of a right ureteral stent. Informed consent was obtained. The patient was taken to the operating room and placed on the operating room table. Anesthesia monitored the head, neck, airway, IV access and vital signs throughout the case. Once anesthesia was appropriate ministered, the patient was placed into dorsolithotomy position was prepped and draped in usual sterile fashion. The cystoscope was inserted through the urethra under direct visualization into the urinary bladder. The bladder mucosa in its entirety was visualized and found to be within normal limits. The right ureteral orifice was intubated with an 0.035 Glidewire which was seen within the renal pelvis on fluoroscopic visualization. A 4.5 [place] by 24 cm JJ stent was placed over the wire with good positioning in the renal pelvis as well as the urinary bladder. When the Glidewire was removed, purulent urine was seen draining from the right kidney. At this time the patient's bladder was emptied and the case was terminated. She was awakened and taken to the recovery room in good condition. There were no complications during this procedure. Grafts/Implants Used: 4.5 [place] by 24 cm JJ stent Complications None Admit VTE Documentation VTE Present on Admission: Yes VTE Mechan Device Prophylaxis: SCD's VTE Pharm Prophylaxis ordered?: No
== END 2023-07-11 14:00 | disposition home or self-care (01) ==
LOC: ED 07:58 → SDC 10:35 → MS3 10:38 → AC 10:54
PROVIDERS: Anesthesiology; Emergency Provider Emergency Medicine; Visit Provider Urology
PROC: (CPT 52332; principal; 2023-07-11 12:50)
DX: N13.6 Pyonephrosis (principal); R10.9 Unspecified abdominal pain; F17.210 Nicotine dependence, cigarettes, uncomplicated; R11.2 Nausea with vomiting, unspecified; Z87.442 Personal history of urinary calculi
CPT/HCPCS: 52332; 00910; 74176; 76000; 80048; 81001; 81025; 84703; 85025; 87086; 87088; 99283; J7030; J7120; A4216; J2405

== ENCOUNTER 2023-07-18 10:19 | Day surgery (SDC) | payer SELFPAY ==
[2023-07-18 10:47] LABS: Internal QC Validated? YES +Cl - CLEAR BKGD; Pregnancy, Urine Negative Negative; Record Kit Lot#,Urine Preg HCG0000667200
[2023-07-18 10:55] VITALS: BP 108/79; PULSE 99; RESP 18; TEMP 36.9; O2SAT 94; BMI 32.9
[2023-07-18] MEDS: Lactated Ringers 1,000 ML 15 ML IV (10:55)
--- NOTE | 2023-07-18 11:52 | PCM.OPRPT ---
Report of Operation Date of Procedure: 07/18/23 Pre-Operative Diagnosis: Right ureteral calculus Post-Operative Diagnosis: Same Surgery/Procedure Performed:: Cystoscopy, right ureteroscopy, holmium laser lithotripsy, stone basket extraction, right ureteral stent change Surgeon: Sue Joshua Type of Anesthesia: General Specimen's removed: Stone fragments Description of Procedure: The patient is a 28-year-old female with a right ureteral calculus who underwent a cystoscopy and right ureteral stent. She now presents for definitive stone intervention. Informed consent was obtained. The patient was taken to the operating room and placed on the operating room table. Anesthesia monitored the head, neck, airway, IV access and vital signs throughout the case. Once anesthesia was appropriately administered, the patient was placed into dorsolithotomy position and was prepped and draped in usual sterile fashion. The cystoscope was inserted through the urethra under direct visualization into the urinary bladder. The right ureteral stent was observed, and a 0.035 Glidewire was inserted alongside of it into the renal pelvis as seen on fluoroscopy. Grasping forceps were used to remove the right ureteral stent. A semirigid ureteroscope was then used to gently cannulate the right ureteral orifice and was advanced until the stone was identified. Using the holmium laser, the stone was fragmented into small pieces which were removed. After all pieces were cleared from the ureter, a ureteral stent was reinserted over the safety wire, with good positioning in the renal pelvis as well as the urinary bladder as seen on fluoroscopy. The patient's bladder was then emptied and the case was terminated. She was awakened and taken to the recovery room in good condition. There were no complications during this procedure. Grafts/Implants Used: 4.5 x 24 cm JJ stent Complications None Admit VTE Documentation VTE Present on Admission: Yes VTE Mechan Device Prophylaxis: SCD's VTE Pharm Prophylaxis ordered?: No Reason prophylaxis not ordered:: Treatment Not Indicated
--- NOTE | 2023-07-18 11:55 | CALC_PTH ---
PATIENT: LUIS MIGUEL CISNEROS LOC: [facility] [place]#:[id number] AGE/SX: 28/F ROOM: RE07/18/[address]: Dr. Sue Joshua MD : [id number] BED: DIS: 07/18/2023 SPEC #: [id number] RECD: 07/18/23 13:29 STATUS: GEMMA TAYLOR #: [id number] GIANNA: 07/18/23 11:[address]: Sue Joshua DEPT: SURGICAL PATHOLOGY RECD BY: Devika Bautista ENTERED: 07/18/23 13:30 SP TYPE: Calculi OTHR DR: No Primary Care Phys Tissues: CALCULI Procedures: Surgery Specimen Level I HEADER OPERATION: Cysto, ureteroscopy, laser lithotripsy, stone basket extract PRE-OP DIAGNOSIS: Hydronephrosis with urinary obstruction due to ureteral calculus, UTI TISSUE SUBMITTED: Stone for calculi analysis GROSS DIAGNOSIS Fragments of stone, clinically ureteral calculi. SJ:viviane 07/19/2023 COMMENT The calculus is submitted in its entirety for chemical stone analysis. The results from this study will be reported separately. GROSS DESCRIPTION Received without fixative labeled with the patient's name and designated stone for analysis. The specimen consists of two fragments of brownish-black stone measuring in aggregate 0.5 x 0.5 x 0.3 cm. The entire specimen is submitted for stone analysis. / TOMER:viviane 07/18/2023 CPT: 31200
[2023-07-18] MEDS: Cefazolin 2 GM in 0.9% Normal Saline (100mL Bag) 100 ML IV (12:14)
--- NOTE | 2023-07-18 12:14 | DCINST_ITS ---
Discharge Instructions Diet Discharge Diet: No restrictions Activity Discharge Activity: Return to Normal Activity Dressing / Incision Call your doctor if you observe: Fever of 101 or Higher, Inability to urinate and Inability to have a bowel movement Follow Up Care Please Follow Up With: Sue Joshua MD When: the office will call her to make arrangements for follow up Test Results: Test results from this visit will be discussed in further detail at your follow- up appointment, if applicable. Discharge Plan Admission Attending Provider: Sue Joshua Primary Care Provider: Care Physician,Shae Primary Discharge Orders/Prescriptions Prescriptions: Continued oxycodone-acetaminophen [Percocet] 5-325 mg tablet 1 tab PO Q8H PRN (Reason: pain) 4 Days Qty: 12 0RF cephalexin 500 mg capsule 500 mg PO 3XD 7 Days Qty: 21 0RF phenazopyridine [Pyridium] 200 mg tablet 200 mg PO TID PRN PRN (Reason: Bladder Spasms) 7 Days Qty: 30 0RF Referrals / Follow Up: Care Physician,Shae Primary [Primary Care Provider] - Disposition Disposition (needs filled in before D/C Order can be placed): Home, Self Care
[2023-07-18 13:04] VITALS: BP 101/53; BP 108/78; PULSE 94; RESP 18; TEMP 36.6; O2SAT 94
[2023-07-18 13:15] VITALS: BP 108/78; BP 97/64; PULSE 84; RESP 18; O2SAT 96
[2023-07-18 13:32] VITALS: BP 108/78; BP 110/76; PULSE 94; RESP 18; TEMP 36.6; O2SAT 94
[2023-07-18 13:50] VITALS: BP 108/78
[2023-07-27 13:09] LABS: Source Not Provided
== END 2023-07-18 13:57 | disposition home or self-care (01) ==
LOC: SDC 10:20 → AC 10:22
PROVIDERS: Anesthesiology; Referring Provider Urology; Visit Provider Urology
PROC: 0TJ98ZZ Inspection of Ureter, Via Natural or Artificial Opening Endoscopic (ICD-10-PCS; CPT 52352; principal; 2023-07-18 11:45)
DX: N13.6 Pyonephrosis (principal); F17.200 Nicotine dependence, unspecified, uncomplicated; Z87.442 Personal history of urinary calculi
CPT/HCPCS: 52356; 00873; 76000; 81025; 82360; 88300; J7120; J2405